=== PATIENT | male | born 1970 | race Caucasian/White ===

== ENCOUNTER 2025-04-27 09:29 | Emergency (ER) | payer OTHER, SELFPAY ==
[2025-04-27 09:35] VITALS: BP 138/45; PULSE 72; RESP 18; TEMP 37; O2SAT 97
[2025-04-27 09:40] VITALS: BMI 36.1
[2025-04-27 09:45] VITALS: BP 110/42; PULSE 68; RESP 16; O2SAT 97
--- NOTE | 2025-04-27 09:54 | PC.NURSE ---
Pt roomed and placed on full monitor- Right forearm covered with self applied paper towels. Pt states bleeding was uncontrolled initially but is now well controlled. VSS Pt with good CMS to hand. Able to move fingers. Ice applied for comfort.
--- NOTE | 2025-04-27 10:05 | PC.NURSE ---
Pt has approx 3 inch X4 inch open area right forearm. New moist DSD applied- no active bleeding- CMS remains good to extremity- Ice applied for comfort.
[2025-04-27] MEDS: Ibuprofen 600 MG TABLET PO (10:13)
[2025-04-27] MEDS: Acetaminophen 325 MG TABLET 975 MG PO (10:13)
--- NOTE | 2025-04-27 11:34 | ED_ITS ---
HPI - Extremity Problem General Chief complaint: Extremity Injury, Upper Stated complaint: arm laceration work related Time Seen by Provider: 04/27/25 11:34 Source: patient, RN notes reviewed and old records reviewed Mode of arrival: ambulatory Limitations: no limitations History of Present Illness ED Provider: Luis Enrique LANDRY Narrative: Patient is a 55-year-old right hand dominant male presenting to the emergency department with complaint of right arm injury sustained at work prior to arrival. He reports that a spring loaded dumpster cover released and hit his right arm causing laceration/injury. Unsure last Tdap. Complains of pain but denies any paresthesias to arm or hand. Related Data Allergies Allergy/AdvReac Type Severity Reaction Status Date / Time Penicillins [PCN] Allergy Unknown UNKNOWN Verified 04/27/25 09:39 Review of Systems 2 Review of Systems: As per HPI Yes all other systems are reviewed and are negative Constitutional: Constitutional: Reports as per HPI [facility] Social History Social History Smoked in Last 30 Days: No Use of substances other than those prescribed or required for medical reasons: No Advance Directives: No Advance Directives Information Provided: Yes Physical Exam 2 Vital Signs: Vital Signs: Last Vital Signs Temp 98.6 F 04/27/25 09:35 Pulse 74 04/27/25 12:38 Resp 16 04/27/25 12:38 BP 110/42 L 04/27/25 09:45 Pulse Ox 97 04/27/25 12:38 O2 Del Method Room Air 04/27/25 12:38 BMI result Body Mass Index 36.1 Vital signs have been reviewed and appear to be correct. Blood pressure normal. Heart rate normal. Respiratory rate normal. Temperature normal. Oxygen saturation normal. Const: General: cooperative, healthy appearing and no acute distress O rientation/consciousness: oriented to person, oriented to place, oriented to time and patient oriented x3 Limitations: no limitations HEENT: Head: Yes normocephalic and Yes atraumatic Ears: external ears normal General nose exam: Normal external nose present Face and sinus: Yes face symmetric Mouth: oropharynx normal and moist mucous membranes T hroat: Yes uvula midline Eyes: Pupils: Equal, round and reactive pupils present Neck: Neck: Yes normal visual inspection and Yes supple Resp: Effort & Inspection: normal respiratory effort and able to speak in complete sentences Auscultation: clear to auscultation bilaterally Cardio: Rate: regular rate Rhythm: regular rhythm Heart sounds: S1 normal heart sound present and S2 normal heart sound present GI: Palpation (GI): Soft to palpation and nontender Auscultation: n ormoactive bowel sounds : General: Yes no CVA tenderness Back/Spine/Pelvis: Back: no CVA tenderness Skin: General skin exam: elasticity normal and turgor normal Neuro: General: oriented to person, oriented to place, oriented to time, patient oriented x3, moves all extremities, no focal motor deficits and CN's II- XI intact bilaterally Cranial nerves: Yes Equal, round and reactive pupils present Cognition (Neuro): normal cognition Extrem: Other: General: Yes full ROM, Yes no pedal edema and Yes no calf tenderness R ight upper extremity: elbow/forearm Details: tenderness Location: of the mid- shaft forearm, laceration (see photos) forearm mid Details: involving subcutaneous tissue, with motor nerve function intact and with sensation intact; not actively bleeding and not involving muscle tissue and distal pulses intact and Extremity exam: right hand Details: normal to inspection, normal capillary refill, neuromotor exam normal, neurosensory exam normal and normal ROM of fingers Psych: Mental Status: mental status grossly normal Affect: normal affect Thought process: Normal thought process present Medications Administered Discontinued Medications Generic Name Dose Route Start Last Admin Trade Name Noahq PRN Reason Stop Dose Admin Acetaminophen 975 mg 04/27/25 10:09 04/27/25 10:13 Acetaminophen 325 Mg Tablet PO 04/27/25 10:10 975 mg ONCE ONE Administration Bacitracin 1 appl 04/27/25 11:40 04/27/25 12:44 Bacitracin Oint 0.9 Gm Packet TOPICAL 04/27/25 11:41 1 appl ONCE ONE Administration Protocol Diphtheria/Tetanus/Acell Pertussis 0.5 ml 04/27/25 11:40 04/27/25 11:45 Diphth,Pertus(Acell),Tet Adult 0.5 Ml Syringe IM 04/27/25 11:41 0.5 ml .ONCE ONE Administration Ibuprofen 600 mg 04/27/25 10:09 04/27/25 10:13 Ibuprofen 600 Mg Tablet PO 04/27/25 10:10 600 mg ONCE ONE Administration Lidocaine HCl 1 appl 04/27/25 11:40 04/27/25 11:45 Lidocaine 4 % Cream Kit TOPICAL 04/27/25 11:41 1 appl ONCE ONE Administration Protocol Lidocaine HCl 10 ml 04/27/25 11:40 04/27/25 12:34 Lidocaine Hcl 1 % Mpf 5 Ml Vial INFILTRATI 04/27/25 11:41 10 ml ONCE ONE Administration Morphine Sulfate 4 mg 04/27/25 12:26 04/27/25 12:35 Morphine Sulfate 4 Mg/Ml Cartridge IVPUSH 04/27/25 12:27 4 mg ONCE ONE Administration Protocol Ondansetron HCl 4 mg 04/27/25 12:26 04/27/25 12:35 Ondansetron Hcl 4 Mg/2 Ml Vial IVPUSH 04/27/25 12:27 4 mg ONCE ONE Administration Medical Decision Making Medical Decision Making [facility] Narrative: Patient is a 55-year-old right hand dominant male presenting to the emergency department with complaint of right arm injury sustained at work prior to arrival. On exam patient is awake, A+Ox3, VS WNL, afebrile, normal neurological exam without focal deficits, physical exam findings as above. Given reported symptoms and physical exam findings, initial differential includes but is not limited to laceration, avulsion, abrasion. Patient medicated with morphine prior to washout and sutures and reports good relief of pain after this. Laceration cleansed and repaired as per procedure note. Tdap updated. No concern for fracture or foreign body. Patient is neurovascularly intact distal. Wound care instructions and return precautions discussed with patient at bedside. Will refer to [facility]. Patient has a responsible adult coming to pick him up. Patient verbalized understanding of and agreement with plan. Differential Diagnosis Differential Diagnoses: The differential diagnosis associated with the presentation includes as per [facility] Admission/Observation Consideration of admission/observation: Escalation of care including admission/observation considered Patient would have been admitted to the hospital had their work up had any findings where hospital admission was appropriate and their clinical presentation warranted hospital admission. External Record Review External record reviewed: Inpatient record, Office record and Outpatient record Procedures Laceration Laceration 1: Site: upper extremity Side (If applicable): right Size (cm): 3 Description: linear and irregular Depth: simple, single layer Local Anesthetic: lidocaine 1% Amount of anesthesia used (mL): 10 Pre-repair: wound explored, irrigated extensively and deep structures intact Skin layer closed with: other (prolene) Size (cm): 5-0 Number of sutures: 7 Technique: simple, interrupted Critical Care Time Critical Care Time Critical Care Time: Yes Total Critical Care Time: 33 Attestation: I have personally provided critical care time exclusive of time spent on separately billable procedures. Time includes review of lab data, radiology results, discussion with consultants, and monitoring for potential decompensation. Intervention performed as documented. Discharge Plan Discharge Clinical Impression: Laceration of right forearm, Work related injury Patient Disposition: Home, Self-Care Instructions: Laceration (DC), Care For Your Stitches (DC), Stitches Removal (ED) Additional Instructions: You have been evaluated in the emergency department today for a laceration to your arm. Your laceration was repaired in the emergency department with 7 sutures. Please keep the area surrounding the laceration clean and dry and keep dressing in place for the next 24 hours. After that please change the dressing and assess the wound daily. Do not submerge the wound in water until the stitches has been removed and the wound has fully healed (no washing dishes, swimming, hot tubs, etc. and ESPECIALLY no outdoor water). Keep the area out of direct sunlight for the next 6 months to help prevent scarring. You should have the sutures removed in 7-10 days. If you develop fever, redness, swelling at the site of your laceration, or thick yellow drainage please come back to the ER for a wound check. Follow up with [facility] for clearance to return to work. [facility] [address] [place] [address] Print Language: [place]
[2025-04-27] MEDS: Diphth,Pertus(ACell),Tet Adult 0.5 ML SYRINGE IM (11:45)
[2025-04-27] MEDS: Lidocaine 4 % Cream KIT 1 APPL TOPICAL (11:45)
[2025-04-27] MEDS: Lidocaine HCl 1 % MPF 5 ML VIAL 10 ML INFILTRATI (12:34)
[2025-04-27 12:35] VITALS: RESP 16
[2025-04-27] MEDS: Morphine Sulfate 4 MG/ML CARTRIDGE IVPUSH (12:35)
[2025-04-27] MEDS: ondansetron HCL 4 MG/2 ML VIAL IVPUSH (12:35)
[2025-04-27 12:38] VITALS: PULSE 74; RESP 16; O2SAT 97
[2025-04-27] MEDS: Bacitracin Oint 0.9 GM PACKET 1 APPL TOPICAL (12:44)
[2025-04-27 13:36] VITALS: BP 122/66; PULSE 72; RESP 15; TEMP 36.9; O2SAT 97
[2025-04-27 13:39] VITALS: BP 122/66; PULSE 72; RESP 15; TEMP 36.9; O2SAT 97
== END 2025-04-27 13:41 | disposition home or self-care (01) ==
PROVIDERS: Emergency Provider Emergency Medicine Emergency Medical Services; PCP Internal Medicine
DX: S51.811A Laceration without foreign body of right forearm, initial encounter (principal); W20.8XXA Other cause of strike by thrown, projected or falling object, initial encounter; M79.601 Pain in right arm; Y93.89 Activity, other specified; Y92.59 Other trade areas as the place of occurrence of the external cause; Y99.0 Civilian activity done for income or pay; Z23 Encounter for immunization
CPT/HCPCS: 12032; 90471; 90715; 96374; 96375; 99284; J2003; J2270; J2405

== ENCOUNTER → 2025-04-30 07:35 | Outpatient (BNVA) | payer OTHER, SELFPAY | PROVIDERS: PCP Internal Medicine; Visit Provider Physician Assistant Medical | DX: S51.811A Laceration without foreign body of right forearm, initial encounter (principal); W20.8XXA Other cause of strike by thrown, projected or falling object, initial encounter | CPT/HCPCS: 99202 ==

== ENCOUNTER 2025-05-04 15:02 | Outpatient (REF) | payer OTHER, SELFPAY | END 2025-05-04 15:03 | disposition home or self-care (01) | LOC: HO.LNP 15:02 | PROVIDERS: PCP Internal Medicine; Visit Provider Physician Assistant Medical | DX: S51.811A Laceration without foreign body of right forearm, initial encounter (principal); L03.113 Cellulitis of right upper limb; W20.8XXA Other cause of strike by thrown, projected or falling object, initial encounter | CPT/HCPCS: 87070; 87077; 87186; 87205 ==

== ENCOUNTER → 2025-05-06 14:46 | Outpatient (BNVA) | payer OTHER, SELFPAY | PROVIDERS: PCP Internal Medicine; Visit Provider Physician Assistant Medical | DX: S51.811A Laceration without foreign body of right forearm, initial encounter (principal); W20.8XXA Other cause of strike by thrown, projected or falling object, initial encounter; L03.113 Cellulitis of right upper limb; Z48.02 Encounter for removal of sutures; T81.33XA Disruption of traumatic injury wound repair, initial encounter | CPT/HCPCS: 99213 ==

== ENCOUNTER → 2025-05-08 14:45 | Outpatient (BNVA) | payer OTHER, SELFPAY | PROVIDERS: PCP Internal Medicine; Visit Provider Physician Assistant Medical | DX: S51.811A Laceration without foreign body of right forearm, initial encounter (principal); W20.8XXA Other cause of strike by thrown, projected or falling object, initial encounter; L03.113 Cellulitis of right upper limb | CPT/HCPCS: 99213 ==

== ENCOUNTER → 2025-05-12 14:44 | Outpatient (BNVA) | payer OTHER, SELFPAY | PROVIDERS: PCP Internal Medicine; Visit Provider Physician Assistant Medical | DX: S51.811D Laceration without foreign body of right forearm, subsequent encounter (principal); W20.8XXD Other cause of strike by thrown, projected or falling object, subsequent encounter; L03.113 Cellulitis of right upper limb | CPT/HCPCS: 99213 ==

== ENCOUNTER → 2025-05-14 14:28 | Outpatient (BNVA) | payer OTHER, SELFPAY | PROVIDERS: PCP Internal Medicine; Visit Provider Physician Assistant | DX: S51.811D Laceration without foreign body of right forearm, subsequent encounter (principal); W20.8XXD Other cause of strike by thrown, projected or falling object, subsequent encounter; L03.113 Cellulitis of right upper limb | CPT/HCPCS: 99213 ==

== ENCOUNTER → 2025-05-19 15:12 | Outpatient (BNVA) | payer OTHER, SELFPAY | PROVIDERS: PCP Internal Medicine; Visit Provider Physician Assistant Medical | DX: S51.811D Laceration without foreign body of right forearm, subsequent encounter (principal); W20.8XXD Other cause of strike by thrown, projected or falling object, subsequent encounter; L03.113 Cellulitis of right upper limb | CPT/HCPCS: 99213 ==

== ENCOUNTER → 2025-05-28 15:12 | Outpatient (BNVA) | payer OTHER, SELFPAY | PROVIDERS: PCP Internal Medicine; Visit Provider Physician Assistant Medical | DX: S51.811D Laceration without foreign body of right forearm, subsequent encounter (principal); W20.8XXD Other cause of strike by thrown, projected or falling object, subsequent encounter; Z02.79 Encounter for issue of other medical certificate | CPT/HCPCS: 99213 ==